=== PATIENT | male | born 1970 | race Caucasian/White ===

== ENCOUNTER 2019-08-03 13:16 | Emergency (ER) | payer OTHER ==
[2019-08-03 13:53] VITALS: BP 130/88; PULSE 88; TEMP 98.2; BMI 31.6
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
== END 2019-08-03 15:47 | disposition home or self-care (01) ==
LOC: JERFT 13:16
DX: Z04.1 Encounter for examination and observation following transport accident (principal); M54.2 Cervicalgia
CPT/HCPCS: 99281-25